=== PATIENT | male | born 1970 | race Caucasian/White ===

== ENCOUNTER 2018-01-18 10:16 | Emergency (ER) | payer OTHER ==
[2018-01-18 10:22] VITALS: BP 125/84; PULSE 80; TEMP 97.9; BMI 28.9
[2018-01-18] MEDS ORDERED: ACETAMINOPHEN 325 MG TABLET (FP) PO ONE (10:36)
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
[2018-01-18] MEDS ORDERED: ACETAMINOPHEN 325 MG TABLET (FP) ONE (10:41)
== END 2018-01-18 10:47 | disposition home or self-care (01) ==
LOC: JER 10:16
DX: S46.911A Strain of unspecified muscle, fascia and tendon at shoulder and upper arm level, right arm, initial encounter (principal); X58.XXXA Exposure to other specified factors, initial encounter; Y93.89 Activity, other specified; Y92.89 Other specified places as the place of occurrence of the external cause; Y99.0 Civilian activity done for income or pay; K21.9 Gastro-esophageal reflux disease without esophagitis
CPT/HCPCS: 99281-25

== ENCOUNTER 2021-03-18 18:36 | Emergency (ER) | payer OTHER ==
[2021-03-18 18:53] VITALS: BP 117/75; PULSE 88; TEMP 97.8; BMI 28.8
== END 2021-03-18 20:36 | disposition home or self-care (01) ==
LOC: JERFT 18:36
PROC: 0X9 Anatomical Regions, Upper Extremities, Drainage (ICD-10-PCS; principal; 2021-03-18)
DX: S83.91XA Sprain of unspecified site of right knee, initial encounter (principal); L03.011 Cellulitis of right finger; X50.0XXA Overexertion from strenuous movement or load, initial encounter
CPT/HCPCS: 99282-25

== ENCOUNTER 2022-01-21 11:50 | Emergency (ER) | payer OTHER ==
[2022-01-21 12:07] VITALS: RESP 19; TEMP 98.9; BMI 28.0
[2022-01-21] MEDS ORDERED: guaiFENesin/CODEINE 10 ML UNIT-DOSE CUPS PO ONE (14:31)
[2022-01-21] MEDS ORDERED: guaiFENesin/D-METHORPHAN HB 10 ML UNIT-DOSE CUPS ONE (14:48)
[2022-01-21] MEDS: ALBUTEROL SO4 2.5/IPRATROPIUM 0.5 INH SOL 3 ML VIAL.NEB. NEB SCH ×2 (15:34→15:36)
[2022-01-21 16:16] LABS: EOS % 1.4 % (0-4.5); HEMATOCRIT 44.6 % (35.4-49); HEMOGLOBIN 14.3 GM/dL (11.7-16.9); LYMPH % 7.5 % (8-40); MCH 28.9 pg (25.7-33.7); MCHC 32.1 g/dl (32.0-35.9); MEAN CELL VOLUME 90.1 fl (80-96); MEAN PLT VOLUME 9.5 fl (7.5-11.1); MONO % 15.3 % (3.8-10.2); NEUT % 74.8 % (42.8-82.8); PLATELET COUNT 203 10^3/uL (134-434); RBC 4.95 M/mm3 (4.00-5.60); RDW 13.8 % (11.9-15.9); WHITE BLOOD COUNT 6.6 K/mm3 (4.0-10.0)
[2022-01-21 16:33] LABS: CALCIUM 9.7 mg/dL (8.5-10.1)
[2022-01-21 16:34] LABS: ALBUMIN 4.1 g/dl (3.4-5.0); BLOOD UREA NITROGEN 17.5 mg/dL (7-18)
[2022-01-21 16:37] LABS: BILIRUBIN,TOTAL 0.7 mg/dL (0.2-1); CREATININE 1.1 mg/dL (0.55-1.3); TOT PROT 7.6 g/dl (6.4-8.2)
[2022-01-21 17:23] VITALS: BP 119/74; PULSE 106
[2022-01-21] MEDS ORDERED: AZITHROMYCIN 500 MG TABLET PO ONE (17:49)
[2022-01-21] MEDS ORDERED: LORATADINE 10 MG TABLET PO ONE (17:50)
[2022-01-21] MEDS ORDERED: LORATADINE 10 MG TABLET ONE (18:02)
[2022-01-21] MEDS ORDERED: AZITHROMYCIN 250 MG TABLET ONE (18:02)
== END 2022-01-21 18:28 | disposition home or self-care (01) ==
LOC: JER 11:50
PROC: 3E0F7GC Introduction of Other Therapeutic Substance into Respiratory Tract, Via Natural or Artificial Opening (ICD-10-PCS; principal; 2022-01-21)
DX: J40 Bronchitis, not specified as acute or chronic (principal)
CPT/HCPCS: 0241U-QW; 36415; 71046-TC-FY; 80053; 85025; 85379; 99284-25

== ENCOUNTER 2022-04-11 14:39 | Emergency (ER) | payer OTHER ==
[2022-04-11 14:47] VITALS: BP 148/74; PULSE 101; RESP 18; TEMP 97.5
== END 2022-04-11 16:07 | disposition home or self-care (01) ==
LOC: JERFT 14:39
DX: S39.012A Strain of muscle, fascia and tendon of lower back, initial encounter (principal); X50.0XXA Overexertion from strenuous movement or load, initial encounter; Y99.0 Civilian activity done for income or pay
CPT/HCPCS: 99282-25